=== PATIENT | female | born 1955 | race American Indian/Alaskan Native ===

== ENCOUNTER 2019-09-20 20:33 | Emergency (ER) | payer OTHER, MEDICARE ==
[2019-09-20 20:44] VITALS: BP 185/95
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
[2019-09-21] MEDS ORDERED: ONDANSETRON 4 MG ODT TAB PO ONE (00:49)
[2019-09-21] MEDS ORDERED: CYCLOBENZAPRINE 10 MG TAB PO ONE (00:49)
[2019-09-21] MEDS ORDERED: ACETAMINOPHEN 500 MG TAB PO ONE (00:49)
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
== END 2019-09-21 02:10 | disposition home or self-care (01) ==
LOC: ED 20:33
DX: S46.912A Strain of unspecified muscle, fascia and tendon at shoulder and upper arm level, left arm, initial encounter (principal); M62.830 Muscle spasm of back; I10 Essential (primary) hypertension; Z79.899 Other long term (current) drug therapy; V49.59XA Passenger injured in collision with other motor vehicles in traffic accident, initial encounter; Y93.89 Activity, other specified; Y92.410 Unspecified street and highway as the place of occurrence of the external cause; Y99.8 Other external cause status
CPT/HCPCS: 72100; Q0162